=== PATIENT | female | born 1985 | race Caucasian/White ===

== ENCOUNTER → 2017-01-30 | Outpatient (CLI) | payer BC ==
--- NOTE | 2017-01-30 18:03 | DIAGNOSTIC IMAGING REPORT ---
LEFT TIBIA/FIBULA 2 VIEWS ROUTINE CLINICAL HISTORY: Left tibial pain. History of tibial impact injury 18 months ago. COMPARISON: None FINDINGS: No fracture of the left tibia or fibula is identified. There is no suspicious osseous lesion. Alignment of the left knee and ankle is anatomic. The left talar dome is intact. IMPRESSION: No significant osseous abnormality of the left tibia or fibula. Electronically signed by: Alen Hadley M.D. 01/30/2017 6:01 PM Dictated Date/Time: 01/30/2017 6:00 PM
== END | disposition home or self-care (01) ==
LOC: C.RAD 17:23
PROVIDERS: ATTEND Family Medicine
DX: M89.8X6 Other specified disorders of bone, lower leg (principal)

== ENCOUNTER 2017-10-22 04:59 | Emergency (ER) | payer BC ==
[~2017-10-22] VITALS: Ht 157.5 cm; Wt 72.8 kg
[2017-10-22 05:04] VITALS: TEMP 36.9; Ht 157.5 cm; Wt 72.8 kg
--- NOTE | 2017-10-22 05:33 | EMERGENCY ROOM VISIT NOTE ---
History Report prepared by Rukhsana: Papito Vaz Under the Supervision of: Dr. Maria Elena Fall D.O. First contact with patient: 05:09 Chief Complaint: DIZZY Stated Complaint: VERY DIZZY History of Present Illness The patient is a 32 year old female who presents to the Emergency Room with complaints of intermittent, severe, dizziness beginning an hour ago. The patient states she woke up severely dizzy. She reports she rolled over and her symptoms began. The patient notes she got up and it felt a little better. She states she can look left and right without worsening her symptoms. The patient reports she bent down to put her shoes on and her symptoms worsened because she changed elevation. She notes she drove herself to work and could not stay there after a short amount of time. She reports she was dreaming she was on a boat in a wavy sea, and when she woke up it felt as if she was still on the boat. The patient notes she went swimming yesterday and did not have an odd amount of water in her ears. She states she was going to take ibuprofen, but it was not in her purse. The patient reports she has an IUD and has an irregular menstrual period. She denies a history of this before, a history of HTN, a family history of HTN, recent sickness, taking OTC cold medicine, trouble urinating, trouble moving her bowels, nausea, and vomiting. Source of History: patient Onset: an hour ago Symptom Intensity: severe Quality: other (dizziness) Timing: intermittent Modifying Factors (Worsening): elevation (changing) Associated Symptoms: No nausea, No vomiting Note: Denies: trouble urinating, trouble moving her bowels Review of Systems See HPI for pertinent positives & negatives. A total of 10 systems reviewed and were otherwise negative. Past Medical & Surgical Surgical Problems: (1) Hx of LASIK (2) S/P ACL repair Family History Patient reports no known family medical history. Social History Smoking Status: Never Smoker Alcohol Use: occasionally Marital Status: Housing Status: lives with significant other Occupation Status: employed Current/Historical Medications Scheduled Multivitamin (Multivitamin), 1 TAB PO DAILY Allergies Coded Allergies: No Known Allergies (Unverified , 10/22/17) Physical Exam Vital Signs Date Time Temp Pulse Resp B/P (MAP) Pulse Ox O2 Delivery O2 Flow Rate FiO2 10/22/17 06:17 78 20 142/79 100 Room Air 10/22/17 05:48 75 20 138/78 100 Room Air 10/22/17 05:04 36.9 70 16 172/93 100 Room Air Physical Exam HEENT: Head - normocephalic and atraumatic Pupils are equal, round, and reactive to light. No nystagmus. Extraocular eye muscles are intact, and sclera are anicteric. Nose - moist nasal mucosa without discharge. Mouth - moist buccal mucosa. Oropharynx is nonerythematous and there is no tonsillar exudate or edema noted. Ears - TMs are clear bilaterally. Neck: Supple; no JVD, nuchal rigidity, cervical lymphadenopathy. Heart: Regular rate and rhythm. There is a normal S1 and S2 with no murmurs, clicks, or gallops appreciated. Lungs: Clear to auscultation bilaterally with no wheezes, rales, or rhonchi. Abdomen: Soft, completely nontender, nondistended, with good bowel sounds. There are no palpable pulsatile masses or hepatosplenomegaly. There is no guarding, rigidity, or rebound noted. Extremities: No evidence of cyanosis, clubbing, or edema. There are easily palpable peripheral pulses. Skin: warm and dry with good turgor and no rashes. Medical Decision & Procedures Laboratory Results Test 10/22/17 05:25 Urine Test NEG (NEG) Laboratory results per my review. ED Course 0509: Past medical records reviewed. The patient was evaluated in room B09. A complete history and physical exam was performed. The patient's blood pressure was monitored closely. A urine specimen was obtained. was negative. She was able to rest comfortably and the majority of her symptoms had subsided. 0602: Upon reevaluation, the patient is feeling better. I discussed findings, including her blood pressure, and results with her. She verbalized agreement of the treatment plan. The patient was discharged home. Medical Decision The patient is a 32 year old female who presents to the ED with intermittent dizziness. Differential diagnosis includes HTN, dehydration, benign positional vertigo, otitis media, otitis externa. Lab results show a negative . This is a 32-year-old female patient who presents to the emergency department with a sudden onset of dizziness upon awakening. The patient had no associated headache or nausea/vomiting. She has never had symptoms like this in the past. The patient was given specific instructions for follow-up if her dizziness persists. She should return here to the emergency department if symptoms worsen. I have asked patient to keep some tabs on her blood pressure throughout the week for follow-up with her PCP. Her blood pressure was slightly elevated. She thought this may be secondary to coffee use. The repeat blood pressures over the week will be helpful for the PCP. Medication Reconcilliation Current Medication List: was personally reviewed by me Blood Pressure Screening Patient's blood pressure: Elevated blood pressure Blood pressure disposition: Referred to PCP Impression Primary Impression: Benign positional vertigo Scribe Attestation The scribe's documentation has been prepared under my direction and personally reviewed by me in its entirety. I confirm that the note above accurately reflects all work, treatment, procedures, and medical decision making performed by me. Departure Information Dispostion Home / Self-Care Referrals Yair Arevalo M.D. (PCP) Forms HOME CARE DOCUMENTATION FORM, IMPORTANT VISIT INFORMATION Patient Instructions ED BPV Vertigo, My [facility] Additional Instructions Rest. Keep yourself well-hydrated. Watch BP over the next week. Follow up with PCP if dizziness continues or if BP remains elevated. Problem Qualifiers Primary Impression: Benign positional vertigo Laterality: unspecified laterality Qualified Codes: H81.10 - Benign paroxysmal vertigo, unspecified ear
[2017-10-22] MEDS ORDERED: MULT-506 PO (06:05)
[2017-10-22 06:17] VITALS: BP 142/79; PULSE 78; O2SAT 100
== END 2017-10-22 06:25 | disposition home or self-care (01) ==
LOC: C.EDB 05:01
DX: H81.10 Benign paroxysmal vertigo, unspecified ear (principal)